=== PATIENT | male | born 1990 | race Caucasian/White ===

== ENCOUNTER 2022-10-19 17:06 | Emergency (ER) | payer MEDICAID ==
[~2022-10-19] VITALS: Ht 180.3 cm; Wt 102.0 kg
[2022-10-19 17:31] VITALS: BP 143/96
[2022-10-19 21:38] LABS: CLARITY URINE CLEAR (CLEAR); COLOR URINE DARK YELLOW (YELLOW); KETONES URINE TRACE (NEGATIVE); LEUKOCYTE ESTERASE URINE NEGATIVE (NEGATIVE); NITRITE URINE NEGATIVE (NEGATIVE); OCCULT BLOOD URINE 1+ (NEGATIVE); PH URINE 5.5 (4.5-8.0); PROTEIN URINE TRACE (NEGATIVE); SPECIFIC GRAVITY URINE 1.029 (1.005-1.030)
[2022-10-19] MEDS ORDERED: DOXY100T2 MT (22:40)
[2022-10-19] MEDS ORDERED: CEFTRIAXONE SODIUM 250 MG/VIAL IM ONE (22:45)
== END 2022-10-19 23:20 | disposition home or self-care (01) ==
LOC: ER 17:06
DX: N45.2 Orchitis (principal); R31.9 Hematuria, unspecified; E11.9 Type 2 diabetes mellitus without complications; F12.10 Cannabis abuse, uncomplicated
CPT/HCPCS: 76870; 81003; 93976; 96372; 99285; J0696; Z7610

== ENCOUNTER 2025-03-12 13:10 | Emergency (ER) | payer OTHER, MEDICAID ==
[~2025-03-12] VITALS: Ht 185.4 cm; Wt 96.0 kg
[~2025-03-12 13:10] MED LIST: DOXY100T2 MT
[2025-03-12 13:18] VITALS: O2SAT 100
[2025-03-12] MEDS: MORPHINE SULFATE 4 MG/ML INJ (FOR IV/IM USE) IV ONE (14:28)
[2025-03-12] MEDS: LIDOCAINE HCL/EPINEPHRINE 1%-EPI 1:100,000 20ML VIAL INFIL ONE (14:45)
[2025-03-12] MEDS: TETANUS, DIPHTHERIA, PERTUSSIS VAC/PF 0.5ML (>10YR OLD) IM ONE (14:45)
[2025-03-12] MEDS ORDERED: LORAZEPAM 2MG/ML UD SYRINGE IV ONE (15:45)
[2025-03-12] MEDS: LORAZEPAM 2MG/ML UD SYRINGE IV SCH (15:46)
[2025-03-12 15:50] VITALS: BP 133/6; PULSE 90; RESP 22; TEMP 37; O2SAT 100
[2025-03-12] MEDS ORDERED: IBUP-1455 MT (15:53)
== END 2025-03-12 16:23 | disposition home or self-care (01) ==
LOC: ER 14:23
DX: S61.411A Laceration without foreign body of right hand, initial encounter (principal); E11.9 Type 2 diabetes mellitus without complications; V89.2XXA Person injured in unspecified motor-vehicle accident, traffic, initial encounter; Y92.410 Unspecified street and highway as the place of occurrence of the external cause; Y93.89 Activity, other specified; Y99.8 Other external cause status
CPT/HCPCS: 99284; 96374; 96375; 73090; 73110; 73130; 90715; 12002; 90471; J2004; J2060; J2270